=== PATIENT | female | born 2000 | race Caucasian/White ===

== ENCOUNTER 2024-01-11 22:59 | Emergency (ER) | payer OTHER, SELFPAY ==
[2024-01-11 23:01] VITALS: BP 122/77; PULSE 85; RESP 16; TEMP 36.6; O2SAT 100; BMI 24.2
--- NOTE | 2024-01-12 00:09 | RAD_ITS ---
EXAM: XR Spine Thoracic 2 Views INDICATION: Female, 23 years old. Posttraumatic back pain TECHNIQUE: AP and lateral views COMPARISON: None FINDINGS: Alignment of the thoracic spine demonstrates a normal kyphosis. There is minimal levoscoliosis centered at C4. There is no vertebral body fracture. Intervertebral disc spaces are preserved. Visualized ribs demonstrate no evidence of fracture. No paraspinal soft tissue density. RAD/Thoracic Spine 2 Views IMPRESSION: No acute abnormality of the thoracic spine Electronically Signed: Vijay Gold MD at 1:43 EDT ,
--- NOTE | 2024-01-12 00:09 | RAD_ITS ---
EXAM: XR Spine Lumbar 2 or 3 Views INDICATION: Female, 23 years old. Posttraumatic low back pain TECHNIQUE: AP, lateral, and coned-down lateral views of the lumbar spine COMPARISON: None FINDINGS: Alignment of the lumbar spine demonstrates a normal lordosis without focal listhesis or significant scoliosis. No vertebral body fracture. Intervertebral disc spaces are preserved. Facet joints are unremarkable. No paraspinal soft tissue density. Visualized pelvis is unremarkable.. RAD/Lumbar Spine 2 or 3 Views IMPRESSION: No acute abnormality of the lumbar spine Electronically Signed: Vijay Gold MD at 1:44 EDT ,
--- NOTE | 2024-01-12 00:30 | ED.VIS.BACK ---
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 She denies any bowel or bladder dysfunction, just noting that turning to try to wipe her perineum after going to the bathroom hurt, but she does not have any saddle anesthesia or persistent neurologic symptoms. She states this happened in the past but she has never had x-rays. [facility] Medical History (Updated 01/12/24 @ 01:[address] Damien June MD) Physical exam, pre-employment Medical History no medical history no medical history Home Medications multivitamin 1 tab PO DAILY 01/11/24 [History Last Taken Unknown] Allergy/AdvReac Type Severity Reaction Status Date / Time Latex, Natural Rubber Allergy Intermediate Rash Verified 01/11/24 23:34 Family History (Updated 01/11/24 @ 23:33 by Paola Cline) Aunt Myocardial infarction Surgical History History of tonsillectomy and adenoidectomy Social History household members: family housing: house Smoking Status: Former smoker ROS ROS ED Constitutional Constitutional ED: Denies chills or fever(s) Gastrointestinal Gastrointestinal: Denies abdominal pain, constipation, fecal incontinence, nausea or vomiting Genitourinary Genitourinary ED: Reports other Details: no urinary retention ; Denies abdominal discomfort or urinary incontinence Musculoskeletal Musculoskeletal: Reports as per HPI and back pain; Denies neck pain Integumentary Denies rash or wounds Neurologic Neurologic: Reports paresthesias RLE; Denies headache(s) or weakness EXAM Physical Exam Const Vital Signs: 01/11/24 23:01 01/12/24 01:44 Temperature 97.8 F 98.4 F Temperature Source Temporal Pulse Rate 85 64 Respiratory Rate 16 16 Blood Pressure 122/77 H 120/80 Blood Pressure Mean 92 93 Pulse Ox 100 100 Positive well nourished and well developed General Appearance ED: well developed and NAD HEENT Negative for trauma or tenderness Eyes PERRL and EOMs intact bilaterally Neck full ROM and supple GI normal to inspection, nondistended, normoactive bowel sounds, soft to palpation and non-tender Back/Spine normal to inspection Cervical Spine: Negative for cervical spine tenderness Thoracic Spine / Upper Back: pain with ROM and thoracic spinal tenderness T4 (mild) and T5 (mild) Lumbar Spine / Lower Back: ROM limited, lumbar spinal tenderness L2, L3 and L4, paraspinal muscle tenderness right and straight leg raise negative bilaterally Extremity normal to inspection, full ROM and no pedal edema Neuro oriented x3 and no sensory deficits noted Sensorium / Orientation: alert Motor Exam: strength 5/5 throughout and clonus absent Deep Tendon Reflexes: Rt Patellar (L4): 2+, Lt Patellar (L4): 2+, Rt Ankle (S1): 2+ and Lt Ankle (S1): 2+ Deep Tendon Reflexes Back: Rt Patellar (L4): 2+, Lt Patellar (L4): 2+, Rt Ankle (S1): 2+ and Lt Ankle (S1): 2+ Plantar Reflex: Downgoing: bilateral Psych mental status grossly normal and thought process normal Skin no rashes or lesions noted and no wounds MDM MDM MDM Narrative Medical decision making narrative: Three-view x-ray series of the lumbar spine were obtained as well as 3 view x-ray series of the thoracic spine, both of which are negative/normal on my interpretation. I do not see any narrowed disc spaces or fractures. Patient is examining negative for radiculopathy right now. She is offered some ibuprofen good lifting restrictions and referred to [facility] for outpatient follow-up. Hopefully just a neuropraxia without an actual disc injury along with myofascial strain. Radiography Diagnostic Testing: Clinical Impression(s) from Imaging Studies Lumbar Spine X-Ray 01/12/24 00:09 IMPRESSION: No acute abnormality of the lumbar spine Electronically Signed: Vijay Gold MD at 1:44 EDT , Thoracic Spine X-Ray 01/12/24 00:09 IMPRESSION: No acute abnormality of the thoracic spine Electronically Signed: Vijay Gold MD at 1:43 EDT , Discharge Plan Triage Chief Complaint: Back ED Provider: Damien June Dx/Rx/DC Orders Clinical Impression: Acute lumbosacral myofascial strain Instructions: ED Back Sprain/Strain Prescriptions: No Action multivitamin Tablet 1 tab PO DAILY Primary Care Provider: Care Physician,No Primary Referrals: [facility] [Group of Physicians] - As soon as possible Disposition Disposition: Home, Self Care Discharge Date/Time: 01/12/24 01:45
[2024-01-12 01:44] VITALS: BP 120/80; PULSE 64; RESP 16; TEMP 36.9; O2SAT 100
== END 2024-01-12 01:45 | disposition home or self-care (01) ==
PROVIDERS: Emergency Provider Emergency Medicine; Visit Provider Emergency Medicine
DX: S39.012A Strain of muscle, fascia and tendon of lower back, initial encounter (principal); Z87.891 Personal history of nicotine dependence; X50.0XXA Overexertion from strenuous movement or load, initial encounter; Y93.F2 Activity, caregiving, lifting; Y99.0 Civilian activity done for income or pay; Y92.129 Unspecified place in nursing home as the place of occurrence of the external cause
CPT/HCPCS: 72070; 72100; 99282